=== PATIENT | female | born 1950 | race Caucasian/White ===

== ENCOUNTER 2018-02-15 13:26 | Inpatient (IN) | payer MEDICARE, MEDICAID ==
--- NOTE | 2018-02-15 14:03 | ED Physician Chart ---
ED Chief Complaint/HPI - Patient Information Date Seen:: 02/15/18 Time Seen:: 13:50 Chief Complaint:: facial trauma History of Present Illness:: Patient stated to the ER triage nurse that she fell when asked how she sustained the facial injury. I asked the same question but the answer was incomprehensible. Skull x-rays taken today were negative for fracture. Allergies:: Allergies Allergy/AdvReac Type Severity Reaction Status Date / Time No Known Allergies Allergy Verified 02/15/18 13:43 Vitals:: Vital Signs - 8 hr 02/15/18 13:44 Temp 98.5 F HR 85 RR 16 BP 147/80 O2 Sat % 98 Historian:: Patient Review:: Transfer documents Reviewed ED Review of Systems - Review of Systems General/Constitutional: No fever, No chills Skin: Skin lesions Head: No headache Eyes: No loss of vision ENT: No earache Neck: No neck pain, No swelling Cardio Vascular: No chest pain Pulmonary: No SOB GI: No nausea, No vomiting, No diarrhea G/U: No dysuria Musculoskeletal: Other (see history and physical) Psychiatric: Prior psych history Allergic/Immuno: No urticaria Neurological: No syncope ED Past Medical History - Past Medical History Past Medical History: Seizures, Other (mental retardation; cerebral palsy) Family History: Other (unavailable) Social History: Care Facility Surgical History: other (unavailable) Psychiatricy History: Other (mental retardation) Medication: Reviewed ED Physical Exam - Physical Examination General/Constitutional: Awake, Well-developed, well-nourished Head: Atraumatic Other Eyes comments:: Ecchymosis and swelling left upper eyelid; slight ecchymosis left lower eyelid Other Skin comments:: See above under eyes ENMT: External ears, nose nl Neck: No nuchal rigidity Respiratory: Nl effort/Exclusion, Clear to Auscultation Cardio Vascular: RRR, No murmur, gallop, rubs GI: No tenderness/rebounding/guarding, No organomegaly Extremities: No tenderness or effusion Neuro/Psych: No focal deficits ED Labs/Radiology/EKG Results - Lab Results Results: Abnormal Lab Results 02/15/18 02/15/18 14:05 14:05 WBC 6.4 RBC 4.12 Hgb 13.3 Hct 39.7 L MCV 96.3 MCH 32.4 H MCHC Differential 33.6 RDW 12.2 Plt Count 391 MPV 7.4 Neutrophils % 57.1 Lymphocytes % 29.7 Monocytes % 9.8 Eosinophils % 2.8 Basophils % 0.6 Sodium 136 Potassium 3.4 L Chloride 102 Carbon Dioxide 25.7 Anion Gap 11.7 BUN 12 Creatinine 0.6 Est GFR ( Amer) > 60.0 Est GFR (Non-Af Amer) > 60.0 BUN/Creatinine Ratio 20.0 Glucose 130 H Calcium 9.4 - Radiology Results Results: CT orbits and head are negative for acute process except for soft tissue swelling. - EKG Interpretations Rate & Rhythm: normal sinus rhythm with a rate of 80 [place]: normal Comments:: Q waves in leads 3 and aVF ED Assessment - Assessment General Assessment: I spoke to Jocelyn Dr. Leavitt's nurse practitioner and patient to be admitted to [facility] ED Septic Shock - . Is Septic Shock (SBP<90, OR Lactate>4 mmol\L) present?: No - <6hrs of presentation: Vital Signs: Vital Signs - 8 hr 02/15/18 13:44 Temp 98.5 F HR 85 RR 16 BP 147/80 O2 Sat % 98 ED Reassessment (Disposition) - Reassessment Reassessment Condition:: Unchanged - Diagnosis Diagnosis:: Blunt head injury; left periorbital ecchymosis; mental retardation - Patient Disposition Admitted to:: Med/Surg Admitting Medical Physician:: Isiah Leavitt Condition at Disposition:: Stable, Unchanged
[2018-02-15 14:21] LABS: % BASOPHILS 0.6 % (0.0-2.0); % EOSINOPHILS 2.8 % (0.0-5.0); % LYMPHOCYTES 29.7 % (20.0-50.0); % MONOCYTES 9.8 % (2.0-10.0); % NEUTROPHILS 57.1 % (40.0-80.0); EOSINOPHILE ABSOLUTE 0.2 Th/cmm (0.1-0.4); HEMATOCRIT 39.7 % (41.0-60); HEMOGLOBIN 13.3 gm/dL (12-16); LYMPHOCYTE ABSOLUTE 1.9 Th/cmm (1.5-3.0); MEAN CELL VOLUME 96.3 fl (81-100); MEAN CORPUSCULAR HEMOGLOBIN 32.4 pg (27.0-31.0); MEAN CORPUSCULAR HGB CONC 33.6 pg (28.0-36.0); MEAN PLATELET VOLUME 7.4 fl; MONOCYTE ABSOLUTE 0.6 Th/cmm (0.3-1.0); NEUTROPHILE ABSOLUTE 3.7 Th/cmm (1.8-8.0); PLATELET COUNT 391 Th/cmm (150-400); RED BLOOD COUNT 4.12 Mil/cmm (3.80-5.20); RED CELL DISTRIBUTION WIDTH 12.2 % (11.5-20.0); WHITE BLOOD COUNT 6.4 Th/cmm (4.8-10.8)
[2018-02-15 14:30] LABS: ANION GAP 11.7 (7.0-16.0); BUN - UREA NITROGEN 12 mg/dL (7-25); CALCIUM SERUM 9.4 mg/dL (8.6-10.3); CARBON DIOXIDE 25.7 mEq/L (21.0-31.0); CHLORIDE 102 mEq/L (98-107); CREATININE - SERUM 0.6 mg/dL (0.6-1.2); GFR AFRICAN-AMERICAN > 60.0 ml/min (>90); GFR NON AFRICAN-AMERICAN > 60.0 ml/min; GLUCOSE 130 mg/dL (70-105); POTASSIUM SERUM 3.4 mEq/L (3.5-5.1); SODIUM SERUM 136 mEq/L (136-145)
--- NOTE | 2018-02-15 14:44 | Diagnostic Imaging Report ---
Head CT without intravenous contrast Indication: Trauma Comparison: Facial CT the same day Technique: Axial images were obtained from the vertex to the skull base without IV contrast. Coronal reconstructions were made. Total DLP: 576, CTDI34 FINDINGS: Images of the brain obtained without contrast demonstrate no evidence of an acute hemorrhage. There is marked cerebellar atrophy. Mild periventricular low attenuation changes are seen particularly left anterior frontal lobe. No hydrocephalus. The basal cisterns are patent. No mass effect or midline shift. Atherosclerosis is noted. No skull fracture. There is soft tissue swelling and hematoma formation of the of the left forehead. Sclerotic bilateral mastoids air cells are seen with IMPRESSION: Left frontal scalp soft tissue swelling and left frontal scalp hematoma formation. No acute intracranial abnormality identified. Atrophy with pronounced cerebellar atrophy noted. Mild white matter disease particularly of the periventricular regions of the left frontal lobe, nonspecific and may be due to chronic microvessel ischemia.
--- NOTE | 2018-02-15 14:48 | Diagnostic Imaging Report ---
CT facial bones without IV contrast HISTORY: Trauma COMPARISON: Head CT the same day Technique: Axial images of the facial bones 39D were obtained without IV contrast. Reconstructions were made. Total DLP, 390 CTD 820 Findings: There is diffuse soft tissue swelling and hematoma formation along the left forehead extending to the left preseptal and infraorbital regions. The bilateral orbital floors are intact. The globes and intraconal compartments are intact. The bilateral zygomatic arches are intact. Age-indeterminate nondisplaced nasal bone fractures are noted possibly chronic. No air-fluid levels within the paranasal sinuses. There is diffuse loss of the dentition with mild irregularity of the mandibular alignment and asymmetry of the TMJ joints. No evidence of TMJ dislocation. IMPRESSION: Soft tissue swelling and hematoma formation of the left forehead with swelling extending to the left preseptal and left infraorbital region. Intact orbital floors are noted. Intact globes. Age-indeterminate nondisplaced nasal bone fractures, possibly chronic. Please correlate clinically and with old exams if available. No air-fluid levels within the paranasal sinuses Diffuse loss of the dentition and irregularity of the mandibular alignment and asymmetry of the TMJ joints. Clinical correlation is needed.
[2018-02-15 18:07] VITALS: BP 136/71
[2018-02-15] MEDS ORDERED: Non-Formulary Item 1 EA (Acetaminophen [Tylenol] 650 MG) PO PRN (18:17)
[2018-02-15] MEDS ORDERED: MYLANTA PO PRN (18:17)
[2018-02-15] MEDS ORDERED: Magnesium Hydroxide (MOM) 30 mL UDC PO PRN (18:17)
[2018-02-15] MEDS ORDERED: Fleet Enema 135 mL RC PRN (18:17)
[2018-02-15] MEDS ORDERED: [UNRECOGNIZED DRUG - OTHER] TP PRN (18:17)
[2018-02-15] MEDS ORDERED: Ipratropium Neb 0.5 mg/2.5 mL UD HHN PRN (18:42)
[2018-02-15] MEDS ORDERED: Maalox 30 mL Cup PO PRN (18:42)
[2018-02-15] MEDS ORDERED: guaiFENesin 200 MG/10 ML UDC PO PRN (18:42)
[2018-02-15] MEDS ORDERED: Albuterol Nebulizer 2.5mg/3mL HHN PRN (18:42)
[2018-02-15] MEDS: D5-0.9%NS 1,000 ML IV SCH (20:18)
[2018-02-16 05:47] LABS: % BASOPHILS 0.9 % (0.0-2.0); % EOSINOPHILS 2.7 % (0.0-5.0); % LYMPHOCYTES 23.6 % (20.0-50.0); % MONOCYTES 9.6 % (2.0-10.0); % NEUTROPHILS 63.2 % (40.0-80.0); BASOPHILE ABSOLUTE 0.1 Th/cumm (0-0.2); EOSINOPHILE ABSOLUTE 0.2 Th/cmm (0.1-0.4); HEMOGLOBIN 12.8 gm/dL (12-16); LYMPHOCYTE ABSOLUTE 1.7 Th/cmm (1.5-3.0); MEAN CELL VOLUME 95.4 fl (81-100); MEAN CORPUSCULAR HEMOGLOBIN 33.1 pg (27.0-31.0); MEAN CORPUSCULAR HGB CONC 34.7 pg (28.0-36.0); MEAN PLATELET VOLUME 7.5 fl; MONOCYTE ABSOLUTE 0.7 Th/cmm (0.3-1.0); NEUTROPHILE ABSOLUTE 4.5 Th/cmm (1.8-8.0); PLATELET COUNT 318 Th/cmm (150-400); RED BLOOD COUNT 3.88 Mil/cmm (3.80-5.20); RED CELL DISTRIBUTION WIDTH 12.2 % (11.5-20.0); WHITE BLOOD COUNT 7.2 Th/cmm (4.8-10.8)
[2018-02-16 06:01] LABS: ALB/GLOB RATIO 1.4 (1.0-1.8); ALBUMIN 3.5 gm/dL (3.7-5.3); ALKALINE PHOSPHATASE 82 U/L (34-104); BILIRUBIN,TOTAL 0.4 mg/dL (0.3-1.0); BUN - UREA NITROGEN 7 mg/dL (7-25); CALCIUM SERUM 8.6 mg/dL (8.6-10.3); CARBON DIOXIDE 23.5 mEq/L (21.0-31.0); CHLORIDE 105 mEq/L (98-107); CREATININE - SERUM 0.5 mg/dL (0.6-1.2); GFR AFRICAN-AMERICAN > 60.0 ml/min (>90); GFR NON AFRICAN-AMERICAN > 60.0 ml/min; GLUCOSE 107 mg/dL (70-105); MAGNESIUM 1.7 mg/dL (1.9-2.7); POTASSIUM SERUM 3.5 mEq/L (3.5-5.1); SGOT 16 U/L (13-39); SGPT/ALT 15 U/L (7-52); SODIUM SERUM 137 mEq/L (136-145)
[2018-02-16] MEDS ORDERED: Non-Formulary Item 1 EA (Hydrochlorothiazide [Hydrochlorothiazide] 12.5 MG) PO SCH (08:00)
[2018-02-16] MEDS ORDERED: Aspirin 325 mg EC PO SCH (09:00)
[2018-02-16] MEDS: Calcium Carb/Vit D 500 mg/200 U Tab PO SCH ×2 (09:21→17:21)
[2018-02-16] MEDS: Multivitamin w/ Minerals Tab PO SCH (09:21)
--- NOTE | 2018-02-16 09:37 | Diagnostic Imaging Report ---
Portable chest x-ray HISTORY: Cough The overall heart size is difficult to assess due to portable technique in a poor inspiration. No definite acute focal pulmonary processes. Increased density noted over the lower mid chest/upper abdomen. This may be related to a tortuous aorta. Aortic aneurysm formation cannot be definitely excluded. IMPRESSION: 1. No acute abnormalities 2. Question tortuous lower thoracic/upper abdominal aorta. Aortic aneurysm is difficult to exclude. A follow-up CT scan would provide additional assessment and evaluation.
[2018-02-16] MEDS ORDERED: IOHEXOL 350mgI/mL 150mL IV ONE (14:35)
[2018-02-16] MEDS: D5-0.9%NS 1,000 ML IV SCH (16:37)
--- NOTE | 2018-02-16 16:58 | History & Physical ---
ADMIT DATE: 02/16/2018 CHIEF COMPLAINT: Facial trauma. HISTORY OF PRESENT ILLNESS: This is a 68-year-old female who is a resident of [facility], admitted to the med/surg unit due to status post fall. In the ER, the patient's core x-rays were taken and is negative for any fractures; however, generalized weakness was noted. For this reason, the patient is admitted. PAST MEDICAL HISTORY: Seizures, MR, cerebral palsy. FAMILY HISTORY: Noncontributory. SOCIAL HISTORY: The patient is a intermediate resident, requiring 24-hour nursing care. SURGICAL HISTORY: Unknown. MEDICATIONS: See medication list. REVIEW OF SYSTEMS: GENERAL: Denies any fever and chills, but complains of weakness. CARDIOVASCULAR: Denies chest pain. RESPIRATORY: Denies o shortness of breath. GASTROINTESTINAL: Denies nausea, vomiting, abdominal pain. : Denies increased frequency or dysuria. NEUROLOGIC: No headaches, seizures, or syncope. All other systems are reviewed and are negative. PHYSICAL EXAMINATION: GENERAL: The patient is an elderly female, awake, alert, in no apparent distress. VITAL SIGNS: Temperature 98.4, heart rate 73, blood pressure 120/72, respirations 17, O2 98%. HEENT: Head: normocephalic, atraumatic. NECK: Supple. No mass. LUNGS: Clear bilaterally. HEART: Regular rhythm. ABDOMEN: Soft, nontender. EXTREMITIES: No trace of edema noted. SKIN: The patient's left eye socket noted with ecchymosis. LABORATORY DATA: WBC 7.2, H and H 12.8 and 37.0, platelet of 318. Sodium 137, potassium 3.5, chloride 105, BUN 7, creatinine 0.5. ASSESSMENT: Status post fall, generalized weakness, hypomagnesemia, cerebral palsy, mitral regurgitation. PLAN: Fall precautions will be initiated. We will get physical therapy evaluation as well. Neuro checks q.4. We will continue to monitor this patient. JOB# [id number]
[2018-02-17 04:58] LABS: % BASOPHILS 0.9 % (0.0-2.0); % EOSINOPHILS 3.4 % (0.0-5.0); % LYMPHOCYTES 28.7 % (20.0-50.0); % MONOCYTES 11.6 % (2.0-10.0); % NEUTROPHILS 55.4 % (40.0-80.0); EOSINOPHILE ABSOLUTE 0.2 Th/cmm (0.1-0.4); HEMATOCRIT 34.6 % (41.0-60); HEMOGLOBIN 12.1 gm/dL (12-16); LYMPHOCYTE ABSOLUTE 1.4 Th/cmm (1.5-3.0); MEAN CELL VOLUME 94.4 fl (81-100); MEAN CORPUSCULAR HEMOGLOBIN 32.9 pg (27.0-31.0); MEAN CORPUSCULAR HGB CONC 34.8 pg (28.0-36.0); MEAN PLATELET VOLUME 7.5 fl; MONOCYTE ABSOLUTE 0.6 Th/cmm (0.3-1.0); NEUTROPHILE ABSOLUTE 2.8 Th/cmm (1.8-8.0); PLATELET COUNT 315 Th/cmm (150-400); RED BLOOD COUNT 3.67 Mil/cmm (3.80-5.20)
[2018-02-17 05:11] LABS: ANION GAP 11.6 (7.0-16.0); BUN - UREA NITROGEN 10 mg/dL (7-25); CALCIUM SERUM 8.4 mg/dL (8.6-10.3); CARBON DIOXIDE 22.9 mEq/L (21.0-31.0); CHLORIDE 107 mEq/L (98-107); CREATININE - SERUM 0.5 mg/dL (0.6-1.2); GFR AFRICAN-AMERICAN > 60.0 ml/min (>90); GFR NON AFRICAN-AMERICAN > 60.0 ml/min; GLUCOSE 105 mg/dL (70-105); POTASSIUM SERUM 3.5 mEq/L (3.5-5.1); SODIUM SERUM 138 mEq/L (136-145)
--- NOTE | 2018-02-17 08:35 | Diagnostic Imaging Report ---
CT angiogram of the chest with intravenous contrast (CTA) HISTORY: Pain Total DLP equals 277 CTDI equals 15.0 Axial sections were obtained from a level above the clavicles down to level below the diaphragm following administration of intravenous contrast. The overall heart size appears normal. There is a large retrocardiac hiatal hernia with the gastric fundus of the stomach above the diaphragm. There is normal opacification of the main, right, and left pulmonary arteries. No intraluminal filling defects are seen. Specifically, no evidence pulmonary embolism. Normal caliber of the thoracic aorta. No aneurysm or evidence of aortic dissection is seen. There is haziness of the interstitial lung markings. Mild edema cannot be excluded. Clinical relation is needed. IMPRESSION: 1. No evidence of pulmonary embolus 2. Normal caliber of the thoracic aorta with no aneurysm or evidence of aortic dissection identified 3. Large retrocardiac hiatal hernia with the gastric fundus above the diaphragm 4. Haziness of the interstitial lung markings. Mild edema cannot be radiographically excluded. Clinical correlation is needed.
[2018-02-17] MEDS ORDERED: Fenofibrate, Micronized 134 mg Cap PO SCH (09:00)
[2018-02-17] MEDS: Calcium Carb/Vit D 500 mg/200 U Tab PO SCH (09:36)
[2018-02-17] MEDS: Multivitamin w/ Minerals Tab PO SCH (09:37)
--- NOTE | 2018-02-17 12:31 | Internal Medicine Prog Note ---
Internal Medicine Subjective - Subjective Service Date: 02/17/18 (DC SUMMARY [id number]) Internal Medicine Objective - Results Result Diagrams: 02/17/18 04:30 02/17/18 04:30 Recent Labs: Laboratory Last Values WBC 5.0 Th/cmm (4.8-10.8) D 02/17/18 04:30 RBC 3.67 Mil/cmm (3.80-5.20) L 02/17/18 04:30 Hgb 12.1 gm/dL (12-16) 02/17/18 04:30 Hct 34.6 % (41.0-60) L 02/17/18 04:30 MCV 94.4 fl (81-100) 02/17/18 04:30 MCH 32.9 pg (27.0-31.0) H 02/17/18 04:30 MCHC Differential 34.8 pg (28.0-36.0) 02/17/18 04:30 RDW 12.0 % (11.5-20.0) 02/17/18 04:30 Plt Count 315 Th/cmm (150-400) 02/17/18 04:30 MPV 7.5 fl 02/17/18 04:30 Neutrophils % 55.4 % (40.0-80.0) 02/17/18 04:30 Lymphocytes % 28.7 % (20.0-50.0) 02/17/18 04:30 Monocytes % 11.6 % (2.0-10.0) H 02/17/18 04:30 Eosinophils % 3.4 % (0.0-5.0) 02/17/18 04:30 Basophils % 0.9 % (0.0-2.0) 02/17/18 04:30 Sodium 138 mEq/L (136-145) 02/17/18 04:30 Potassium 3.5 mEq/L (3.5-5.1) 02/17/18 04:30 Chloride 107 mEq/L (98-107) 02/17/18 04:30 Carbon Dioxide 22.9 mEq/L (21.0-31.0) 02/17/18 04:30 Anion Gap 11.6 (7.0-16.0) 02/17/18 04:30 BUN 10 mg/dL (7-25) 02/17/18 04:30 Creatinine 0.5 mg/dL (0.6-1.2) L 02/17/18 04:30 Est GFR ( Amer) > 60.0 ml/min (>90) 02/17/18 04:30 Est GFR (Non-Af Amer) > 60.0 ml/min 02/17/18 04:30 BUN/Creatinine Ratio 20.0 02/17/18 04:30 Glucose 105 mg/dL (70-105) 02/17/18 04:30 POC Glucose 109 MG/DL (70 - 105) H 02/15/18 17:23 Calcium 8.4 mg/dL (8.6-10.3) L 02/17/18 04:30 Magnesium 1.7 mg/dL (1.9-2.7) L 02/16/18 05:25 Total Bilirubin 0.4 mg/dL (0.3-1.0) 02/16/18 05:25 AST 16 U/L (13-39) 02/16/18 05:25 ALT 15 U/L (7-52) 02/16/18 05:25 Alkaline Phosphatase 82 U/L (34-104) 02/16/18 05:25 Total Protein 6.0 gm/dL (6.0-8.3) 02/16/18 05:25 Albumin 3.5 gm/dL (3.7-5.3) L 02/16/18 05:25 Globulin 2.5 gm/dL 02/16/18 05:25 Albumin/Globulin Ratio 1.4 (1.0-1.8) 02/16/18 05:25 - Physical Exam Vitals and I&O: Vital Signs Temp 97.4 F 02/17/18 11:32 Pulse 72 02/17/18 11:32 Resp 17 02/17/18 11:32 BP 136/82 02/17/18 11:32 Pulse Ox 99 02/17/18 11:32 Intake & Output 02/16/18 02/17/18 02/17/18 18:59 06:59 18:59 Intake Total 1000 Balance 1000 Weight (lbs) 142 lb Intake: Intake, IV Amount 1000 D5-0.9%Ns 1,000 ml @ 50 1000 mls/hr IV .Q20H [facility] Rx#: [id number] Other: # Voids 2 Weight Source Bedscale Active Medications: Current Medications Acetaminophen (Tylenol) 650 mg PO Q4HR PRN PRN Reason: Mild Pain 1-3/ Fever above 101 Stop: 04/16/18 18:41 Al Hydrox/Mg Hydrox/Simethicone (Maalox) 30 ml PO Q6HR PRN PRN Reason: Dyspepsia Stop: 04/16/18 18:41 Albuterol Sulfate (Albuterol 2.5mg/3ml Neb Ud) 2.5 mg HHN Q2HR PRN PRN Reason: Shortness of Breath or Wheeze Stop: 04/16/18 18:41 Aspirin (Ecotrin) 81 mg PO DAILY [facility] Stop: 04/17/18 08:59 Last Admin: 02/17/18 09:37 Dose: 81 mg Bisacodyl (Dulcolax 10 Mg Supp) 10 mg RC Q96H PRN PRN Reason: MODERATE CONSTIPATION Stop: 04/16/18 18:16 Calcium/Vitamin D (Oscal W/Vitamin D) 1 tab PO BID [facility] Stop: 04/17/18 08:59 Last Admin: 02/17/18 09:36 Dose: 1 tab Carbamazepine (Tegretol) 400 mg PO BID [facility] Stop: 04/17/18 08:59 Last Admin: 02/17/18 09:36 Dose: 400 mg Fenofibrate (Tricor) 134 mg PO QOD [facility] Stop: 04/18/18 08:59 Last Admin: 02/17/18 09:37 Dose: 134 mg Guaifenesin (Robitussin) 100 mg PO Q4HR PRN PRN Reason: Cough or Congestion Stop: 04/16/18 18:41 Dextrose/Sodium Chloride (D5-0.9%Ns) 1,000 mls @ 50 mls/hr IV .Q20H [facility] Stop: 04/16/18 19:19 Last Admin: 02/16/18 16:37 Dose: 50 mls/hr Ipratropium [place] (Atrovent Neb 0.5mg/2.5ml) 0.5 mg HHN Q2HR PRN PRN Reason: Shortness of Breath or Wheeze Stop: 04/16/18 18:41 Magnesium Hydroxide (Milk Of Magnesia) 30 ml PO Q72H PRN PRN Reason: MILD CONSTIPATION Stop: 04/16/18 18:16 Ondansetron HCl (Zofran) 4 mg IV Q8HR PRN PRN Reason: Nausea / Vomiting Stop: 04/16/18 18:41 Sodium Phosphate (Fleet Enema) 135 ml RC Q96H PRN PRN Reason: SEVERE CONSTIPATION Stop: 04/16/18 18:16
--- NOTE | 2018-02-17 13:25 | Discharge Summary ---
DATE OF DISCHARGE: 02/17/2018 FINAL DIAGNOSES: Status post fall, generalized weakness, hypomagnesemia, cerebral palsy, mitral regurgitation. HISTORY OF PRESENT ILLNESS: A 68-year-old female resident of [facility], admitted to the med/surg unit status post fall. In the ER, the patient's x-rays were taken, negative for any fractures; however, generalized weakness was noted. PHYSICAL EXAMINATION: GENERAL: Elderly female, awake, alert with confusion, no apparent distress. VITAL SIGNS: Stable. HEENT: Head normocephalic, atraumatic. NECK: Supple. No mass. LUNGS: Clear bilaterally. HEART: Regular rate and rhythm. ABDOMEN: Soft, nontender. HOSPITAL COURSE: During the hospital stay, the patient was admitted to the med/surg unit. The patient had a PT, OT evaluation. The patient had a chest x-ray, showed probable aortic aneurysm, so CTA was ordered and there is no evidence of PE or any aortic aneurysm. The patient refused to have urine collected. The patient has been stable. No episodes of any fall. For this reason, the patient is stable for discharge. CONDITION UPON DISCHARGE: Fair. DISPOSITION: [facility]. JOB# [id number]
== END 2018-02-17 16:45 | DRG 641 ==
LOC: ER 13:26 → MSI 16:40
PROVIDERS: ADMIT Internal Medicine; ATTEND Internal Medicine
DX: E86.0 Dehydration (principal); S05.12XA Contusion of eyeball and orbital tissues, left eye, initial encounter; E83.42 Hypomagnesemia; G80.9 Cerebral palsy, unspecified; I34.0 Nonrheumatic mitral (valve) insufficiency; F79 Unspecified intellectual disabilities; W18.30XA Fall on same level, unspecified, initial encounter; Y93.89 Activity, other specified; Y92.89 Other specified places as the place of occurrence of the external cause; Y99.8 Other external cause status
CPT/HCPCS: 36415-UA; 70450-TC; 70486-TC; 71045-TC; 71275-TC; 80048-TC; 80053-TC; 82948-90; 83735-TC; 85025-TC; 93005; 94760; J7042; Z7610